=== PATIENT | male | born 1955 | race Caucasian/White ===

== ENCOUNTER 2018-03-09 23:34 | Inpatient (IN) | payer MEDICARE, MEDICAID ==
--- NOTE | 2018-03-10 | ED Physician Chart ---
ED Chief Complaint/HPI - Patient Information Date Seen:: 03/09/18 Time Seen:: 23:45 Chief Complaint:: multiple trauma History of Present Illness:: Patient fell down one flight of stairs 3 days ago. He was taken [facility] where he was discharged about 2 hours ago. He was seen at [facility] by Dr. Jackson who directed the patient to be brought here by ambulance. Patient complains of right arm pain. He is unaware of what fractures if any he sustained. Vitals:: Vital Signs - 8 hr 03/09/18 23:40 Temp 98.1 F HR 100 RR 16 BP 152/58 O2 Sat % 97 Historian:: Patient, EMS Review:: Nurse's Note Reviewed ED Review of Systems - Review of Systems General/Constitutional: No fever, No chills Skin: Skin lesions Head: No headache Eyes: No loss of vision ENT: No earache Neck: No swelling Cardio Vascular: No chest pain, No palpitations Pulmonary: No SOB GI: No nausea, No vomiting, No diarrhea Musculoskeletal: Bone or joint pain Psychiatric: No prior psych history Hematopoietic: Bruising, No bruising Allergic/Immuno: No urticaria Neurological: No syncope ED Past Medical History - Past Medical History Past Medical History: HTN Family History: None Social History: Non Smoker, Alcohol, Other 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 Surgical History: other (trach) Psychiatricy History: None Medication: None Family Medical History - Family Member Mother History Unknown: Yes Ethnicity: ED Physical Exam - Physical Examination General/Constitutional: Well-developed, well-nourished, Alert Other Head comments:: Multiple facial abrasions Eyes: Lids, conjuctiva normal, PERRL Other Skin comments:: Abrasions both arms and both legs ENMT: External ears, nose nl Other Neck comments:: Hard cervical collar in place Respiratory: Nl effort/Exclusion, Clear to Auscultation Cardio Vascular: RRR, No murmur, gallop, rubs GI: No tenderness/rebounding/guarding Other Extremities comments:: sugar tong splint right forearm with swelling of fingers right hand Neuro/Psych: No focal deficits ED Septic Shock - . Is Septic Shock (SBP<90, OR Lactate>4 mmol\L) present?: No - <6hrs of presentation: Vital Signs: Vital Signs - 8 hr 03/09/18 23:40 Temp 98.1 F HR 100 RR 16 BP 152/58 O2 Sat % 97 ED Reassessment (Disposition) - Diagnosis Diagnosis:: Multiple trauma - Patient Disposition Admitted to:: Med/Surg Spoke to:: Venkat Jackson Admitting Medical Physician:: Venkat Jackson
[2018-03-10 00:40] LABS: INR 1.39 (0.5-1.4); PROTHROMBIN TIME (TEST) 14.7 SECONDS (9.5-11.5)
[2018-03-10 00:42] LABS: ALBUMIN 2.3 gm/dL (4.2-5.5); ALKALINE PHOSPHATASE 67 U/L (34-104); ANION GAP 6.5 (7.0-16.0); BILIRUBIN,TOTAL 2.7 mg/dL (0.3-1.0); BUN - UREA NITROGEN 11 mg/dL (7-25); CALCIUM SERUM 7.5 mg/dL (8.6-10.3); CARBON DIOXIDE 27.1 mEq/L (21.0-31.0); CHLORIDE 104 mEq/L (98-107); CREATININE - SERUM 0.7 mg/dL (0.7-1.3); GFR AFRICAN-AMERICAN > 60.0 ml/min (>90); GFR NON AFRICAN-AMERICAN > 60.0 ml/min; GLUCOSE 132 mg/dL (70-105); POTASSIUM SERUM 3.6 mEq/L (3.5-5.1); SGOT 28 U/L (13-39); SGPT/ALT 11 U/L (7-52); SODIUM SERUM 134 mEq/L (136-145); TOTAL PROTEIN,SERUM 4.7 gm/dL (6.0-8.3)
[2018-03-10 00:57] LABS: HEMATOCRIT 25.8 % (41.0-60); HEMOGLOBIN 8.9 gm/dL (12-16); MEAN CORPUSCULAR HEMOGLOBIN 36.4 pg (26.0-30.0); MEAN CORPUSCULAR HGB CONC 34.5 pg (28.0-36.0); MEAN PLATELET VOLUME 8.2 fl; RED BLOOD COUNT 2.44 Mil/cmm (4.30-5.70); RED CELL DISTRIBUTION WIDTH 13.4 % (11.5-20.0)
[2018-03-10 00:59] LABS: PLATELET COUNT 21 Th/cmm (150-400)
[2018-03-10 01:00] LABS: MEAN CELL VOLUME 105.5 fl (80-99)
[2018-03-10 01:17] LABS: ANISOCYTOSIS 1+; EOSINOPHIL 2 % (0-5); LYMPHOCYTE 28 % (20-50); NEUTROPHILS 70 % (40-80); PLATELET ESTIMATE DECREASED PLATELETS (NORMAL)
[2018-03-10 02:22] VITALS: BP 135/59
[2018-03-10] MEDS ORDERED: Morphine Sulfate 2 mg/mL 1mL Syr IVP PRN ×2 (04:37→04:43)
[2018-03-10] MEDS: Morphine Sulfate 2 mg/mL 1mL Syr IVP PRN ×2 (05:26→15:59)
[2018-03-10 05:32] LABS: HEMOGLOBIN 9.4 gm/dL (12-16); MEAN CORPUSCULAR HEMOGLOBIN 37.8 pg (26.0-30.0); MEAN CORPUSCULAR HGB CONC 35.9 pg (28.0-36.0); RED BLOOD COUNT 2.47 Mil/cmm (4.30-5.70); RED CELL DISTRIBUTION WIDTH 13.4 % (11.5-20.0)
[2018-03-10 05:34] LABS: MEAN CELL VOLUME 105.3 fl (80-99); PLATELET COUNT 19 Th/cmm (150-400); WHITE BLOOD COUNT 3.4 Th/cmm (4.8-10.8)
[2018-03-10 05:56] LABS: ANION GAP 7.1 (7.0-16.0); BUN - UREA NITROGEN 11 mg/dL (7-25); CALCIUM SERUM 7.6 mg/dL (8.6-10.3); CARBON DIOXIDE 26.4 mEq/L (21.0-31.0); CHLORIDE 104 mEq/L (98-107); CREATININE - SERUM 0.6 mg/dL (0.7-1.3); CREATININE KINASE 114 U/L (30-223); GFR AFRICAN-AMERICAN > 60.0 ml/min (>90); GFR NON AFRICAN-AMERICAN > 60.0 ml/min; GLUCOSE 132 mg/dL (70-105); POTASSIUM SERUM 3.5 mEq/L (3.5-5.1); SODIUM SERUM 134 mEq/L (136-145)
[2018-03-10 06:12] LABS: EOSINOPHIL 1 % (0-5); LYMPHOCYTE 26 % (20-50); MONOCYTE 6 % (2-10); NEUTROPHILS 67 % (40-80)
[2018-03-10 06:13] LABS: PLATELET ESTIMATE DECREASED PLATELETS (NORMAL)
--- NOTE | 2018-03-10 08:36 | Diagnostic Imaging Report ---
CHEST X-RAY: AP view INDICATION: Trauma COMPARISON: None FINDINGS: Mild chronic lung changes are noted. There is no evidence of pneumothorax. No focal consolidation or effusion. Heart size is normal. Osseous structures are intact. IMPRESSION: Mild chronic lung changes. No focal consolidation or evidence of pneumothorax.
--- NOTE | 2018-03-10 08:37 | Diagnostic Imaging Report ---
Pelvis single view Indication: Trauma Comparison: none Findings: Patient is slightly rotated. No evidence of an acute fracture or dislocation. Minimal degenerative changes of the bilateral hip joints are noted. The SI joints are preserved. Impression: No evidence of an acute fracture. In the setting of trauma, if clinical symptoms persist and there is continued concern for an occult fracture, follow up exams in 5-7 days is suggested.
--- NOTE | 2018-03-10 08:39 | Diagnostic Imaging Report ---
Right wrist 2 views Indication: Trauma Comparison: none Findings: Overlying cast is seen limiting fine soft tissue and bony detail. A comminuted impacted distal radial fracture is noted. Distal ulnar fracture including the ulnar styloid is also noted. The lungs soft tissue swelling is noted. No definite dislocation. Impression: Limited exam due to overlying cast. Comminuted impacted distal radial fracture is noted. Distal ulnar fracture including ulnar styloid fracture noted. Clinical correlation and follow-up is recommended.
--- NOTE | 2018-03-10 09:01 | Diagnostic Imaging Report ---
Head CT without intravenous contrast Indication: Trauma Comparison: None Technique: Axial images were obtained from the vertex to the skull base without IV contrast. Coronal reconstructions were made. Total DLP: 615, CTDI34.8 FINDINGS: Images of the brain obtained without contrast demonstrate low-attenuation changes seen along the right frontoparietal region. Atrophy is noted. There is no evidence of an acute hemorrhage. The ventricles and basal cisterns are patent. No mass effect or midline shift. Small focus of encephalomalacia along the left occipital lobe is also noted. There is mild soft tissue swelling involving the right frontal scalp. No evidence of a skull fracture. There is mucosal thickening in the paranasal sinuses. IMPRESSION: Mild soft tissue swelling along the right frontal scalp. No evidence of a skull fracture. No evidence of an acute intracranial hemorrhage. Low-attenuation changes and likely areas of encephalomalacia involving the right frontal-parietal lobe region and additional small focus of encephalomalacia involving the left parietal lobe. Findings may be related to old infarcts. Please correlate with clinical history an old exams. If necessary MRI follow baby obtained for further assessment Atrophy. Mild sinus disease.
--- NOTE | 2018-03-10 09:40 | Diagnostic Imaging Report ---
CT cervical spine without IV contrast HISTORY: Trauma COMPARISON: None Technique: Axial images were obtained from the skull base to the upper thoracic spine without IV contrast. Multiplanar reconstructions were made. Total DLP: 414, CTDI18.8 FINDINGS: There is a slightly comminuted fracture involving the posterior/superior aspect of the lateral mass of C1 on the left with its articulation to the occiput. There is also a minimally displaced fracture involving the peripheral aspect of the left L1 transverse process which extends just to the transverse foramen. There is also slight irregularity of the posterior aspect of the base of the odontoid process which is probably developmental less likely a nondisplaced fracture. Cnbi-wu-[id number] degenerative changes are noted greatest at C5/C6 with mild disc space loss of height at this level. Small marginal discussed. Spurs are seen posteriorly. Anterior disc osteophyte spurs are also seen greatest at C4/C5 and C5/C6. Endplate irregularities at C5/C6 are likely degenerative in etiology. No prevertebral soft tissue swelling. Scarring of the lung apices are noted. IMPRESSION: Slightly comminuted fracture involving the superior aspect of the left lateral mass of C1 at its articulation with the occiput. There are also nondisplaced fracture involving the left transverse process of C1 which appears to extend to the transverse foramen. If there is concern for vascular injury, CT angiography of the neck may also be obtained for further assessment. Slight irregularity of posterior aspect of the base of the odontoid process, probably congenital. A Nondisplaced fracture is considered much less likely. No evidence of subluxation. Degenerative changes. Endplate irregularities at C5/C6 are likely degenerative etiology. Inflammatory or infectious etiologies considered less likely.
[2018-03-10] MEDS ORDERED: D5-0.45NS 1,000 ML IV SCH (10:45)
[2018-03-10 19:01] LABS: INR 1.36 (0.5-1.4); PROTHROMBIN TIME (TEST) 14.4 SECONDS (9.5-11.5)
--- NOTE | 2018-03-10 19:46 | Consultation ---
DATE OF CONSULTATION: 03/10/2018 HEMATOLOGY ONCOLOGY CONSULTATION REFERRING PHYSICIAN: Dr. Jackson. REASON FOR CONSULTATION: Coagulopathy, thrombocytopenia, and leukopenia. HISTORY OF PRESENT ILLNESS: The patient is a 62-year-old male who was reportedly suffering a fall 3 days ago. The patient was seen at and discharged and then was seen at the outside care facility and transferred for admission. He was found to have low platelets and apparently had a cast placed around the right forearm for fracture of the distal forearm bones. PAST MEDICAL HISTORY: Hypertension. PAST SURGICAL HISTORY: Tracheostomy, the indication is unclear. SOCIAL HISTORY: No reported smoking or drinking. FAMILY HISTORY: None known. PHYSICAL EXAMINATION: GENERAL: The patient is awake, Mauritanian speaking. VITAL SIGNS: Stable. NECK: Wearing a neck collar for stabilization with hematoma on the right lower neck over the right clavicle. CHEST: Clear. ABDOMEN: Soft. Umbilical scar from previous surgery. EXTREMITIES: Right forearm cast. The patient also has multiple facial abrasions and ecchymosis. No oral mucosal or nasal mucosal bleeding. LABORATORY DATA: INR 1.39. Hemoglobin 9.4, platelets 19, and white count 3.4. Chemistry: Bilirubin elevated at 2.7. AST and ALT are normal. Creatinine 0.6. X-rays of the ____ reported distal radius fracture. CT scan of the head unremarkable. ASSESSMENT: Low platelet count. The etiology is unclear. There are no old records available in our hospital and the patient is not providing any meaningful history. Therefore, I will transfuse platelets because of the multiple hematomas and ecchymosis and fracture of the right distal forearm. We will obtain ultrasound of the abdomen to evaluate the liver and spleen, B12 and folate level and monitor the platelet count in response to transfusion. The patient has elevated bilirubin, which is suggestive of underlying likely liver disease and the abdominal ultrasound will be helpful in that regard. I will also obtain PT and PTT for monitoring. Thank you Dr. Jackson for the opportunity to participate in the care of this interesting case. JOB# [id number]
--- NOTE | 2018-03-10 21:40 | Consultation ---
DATE OF CONSULTATION: 03/10/2018 INFECTIOUS DISEASE CONSULTATION REFERRING PHYSICIAN: Hardik Jackson MD REASON FOR CONSULTATION: Neutropenia. HISTORY OF PRESENT ILLNESS: The patient is 62-year-old male with a past medical history of alcohol abuse, CVA, had a fall from the stairs 3 days ago. He was taken to the [facility] ER. He was discharged to [facility] yesterday. He was transferred to [facility] ER for further evaluation within 2 hours. Otherwise, the patient complains of right arm pain where he has one cast. The patient also has hard cervical collar. Otherwise, from Infectious Disease point of view, there is no fever, no chills. The patient's WBC count was 3,000 on presentation. Platelets were also low at 21,000. ALLERGIES: THE PATIENT IS ALLERGIC TO ZOSYN. MEDICATIONS: As per medication reconciliation sheet. PAST MEDICAL HISTORY: Includes CVA, hypertension, alcohol abuse, cirrhosis. SOCIAL HISTORY: The patient lives at home. The patient has no history of smoking, but has history of alcohol abuse. Denies drug use. FAMILY HISTORY: Not available. REVIEW OF SYSTEMS: GENERAL: The patient has no fever, no chills. HEENT: No diplopia, no photophobia, no sore throat. RESPIRATORY: The patient has no cough, no shortness of breath. CARDIOVASCULAR: No chest pain or palpitation. GASTROINTESTINAL: No nausea, no vomiting, no diarrhea, no constipation. GENITOURINARY: No dysuria. NEUROLOGIC: No headache, no dizziness, no focal weakness. MUSCULOSKELETAL: The patient has neck pain and right arm pain. PHYSICAL EXAMINATION: VITAL SIGNS: Currently shows temperature is 99.1 degrees Fahrenheit, pulse 103, respiration is 18, blood pressure 121/53. GENERAL: The patient is comfortable lying in the bed, not in acute distress, well nourished, well developed. HEENT: Head is normocephalic, atraumatic. Oral cavity moist, pink tongue. Above the right elbow, there is a wound with stitches intact. NECK: The patient has a hard cervical collar. CHEST: Bilateral breath sounds. No crackles or wheezing. HEART: S1, S2 within normal limits. Regular rhythm. No murmur, no gallop. ABDOMEN: Soft, nontender, nondistended. Bowel sounds present. EXTREMITIES: No cyanosis, no clubbing, no edema. The patient has cast on the right forearm. NEUROLOGICAL: Alert, awake, oriented x 3. No focal deficit. SKIN: The patient has multiple areas of ecchymosis. LABORATORY DATA: Current lab shows WBC count is 3400, hemoglobin 9.4, hematocrit 26, platelets are 19,000, neutrophils 57%. Sodium 134, potassium 3.5, chloride 104, bicarbonate is 26.4, BUN is 11, creatinine 0.6, glucose 132. IMPRESSION: 1. Neutropenia. 2. Thrombocytopenia, likely secondary to cirrhosis. 3. Multiple traumas secondary to fall. 4. Alcohol abuse. 5. History of hypertension. 6. History of cerebrovascular accident. RECOMMENDATIONS: There is no need of IV antibiotic at this time, but we will order HIV screen, hepatitis C screen, hepatitis B screen. Ask for Hematology consultation with Dr. Hebert. Ultrasound of the abdomen to rule out hepatosplenomegaly. Thank you, Dr. Jackson, for involving me in taking care of this patient. JOB# [id number]
[2018-03-11 12:17] LABS: FOLIC ACID 5.5 ng/mL (>3.0)
--- NOTE | 2018-03-14 09:28 | Discharge Summary ---
DATE OF DISCHARGE: 03/10/2018 HOSPITAL COURSE: The patient came to the [facility], admitted on 03/09 and transferred to [facility] on 03/10. Apparently, this patient was in the [facility]. He was discharged. He fell a flight of stairs 3 days ago and the patient went to the ____ patient referred to the [facility] and was admitted. The patient was complaining of right arm pain and also complaining of pain in the back of the neck, low back pain and some numbness to his legs. Initial diagnoses after doing the x-ray, the patient had ____ fracture and also had ____ and also has an L1 fracture and the patient ____ with possible fracture there. DIAGNOSES: History of fall, multiple trauma, right ____ fracture, cervical fracture, C1, and ____ fracture. The patient was ____neurologist as well as ____ [facility] ____ as well as neurosurgical consultation. The patient at the time of discharge was stable. JOB# [id number]
== END 2018-03-10 21:20 | disposition short-term general hospital (02) | DRG 551 ==
LOC: ER 23:34 → MSI 23:55
PROVIDERS: ADMIT Internal Medicine; ATTEND Internal Medicine
PROC: 30233R1 Transfusion of Nonautologous Platelets into Peripheral Vein, Percutaneous Approach (ICD-10-PCS; principal; 2018-03-10)
DX: S12.040A Displaced lateral mass fracture of first cervical vertebra, initial encounter for closed fracture (principal); E41 Nutritional marasmus; S52.601A Unspecified fracture of lower end of right ulna, initial encounter for closed fracture; S32.019A Unspecified fracture of first lumbar vertebra, initial encounter for closed fracture; S52.501A Unspecified fracture of the lower end of right radius, initial encounter for closed fracture; D69.6 Thrombocytopenia, unspecified; I10 Essential (primary) hypertension; K74.60 Unspecified cirrhosis of liver; D70.9 Neutropenia, unspecified; F10.10 Alcohol abuse, uncomplicated; S50.11XA Contusion of right forearm, initial encounter; W10.8XXA Fall (on) (from) other stairs and steps, initial encounter; Y93.89 Activity, other specified; Z93.0 Tracheostomy status; Z86.73 Personal history of transient ischemic attack (TIA), and cerebral infarction without residual deficits; Y92.89 Other specified places as the place of occurrence of the external cause; Y99.8 Other external cause status
CPT/HCPCS: 36415-UA; 70450-TC; 71045-TC; 72125-TC; 72170-TC; 73100-TC-RT; 80048-TC; 80053-TC; 82550-TC; 82607-90; 82746-90; 84443-TC; 85007-TC; 85025-TC; 85610-TC; 86900-TC; 86901-TC; J2270; P9035